=== PATIENT | female | born 1990 | race Caucasian/White ===

== ENCOUNTER → 2016-11-16 | Outpatient (CLI) | payer OTHER ==
[2016-11-16 11:00] LABS: BASOPHILS # (AUTO) 0.03 10*3/UL; BASOPHILS % (AUTO) 0.3 % (0-1); EOSINOPHILS # (AUTO) 0.19 10*3/UL; EOSINOPHILS % (AUTO) 2.1 % (0-8); HEMATOCRIT 39.6 % (37.0-47.0); HEMOGLOBIN 12.8 g/dL (12.0-16.0); LYMPHOCYTES # (AUTO) 2.36 10*3/uL; MEAN CORPUSCULAR HEMOGLOBIN 27.4 PG (27-31); MEAN CORPUSCULAR HGB CONC 32.3 g/dL (33-37); MEAN CORPUSCULAR VOLUME 84.6 FL (81-99); MEAN PLATELET VOLUME 11.6 FL (7.4-12.2); MONOCYTES # (AUTO) 0.59 10*3/UL (0.3-0.8); MONOCYTES % (AUTO) 6.4 % (5-15); NEUTROPHILS # (AUTO) 5.98 10*3/UL; NEUTROPHILS % (AUTO) 65.2 % (50-80); RED BLOOD COUNT 4.68 10^6/uL (4.20-5.40)
[2016-11-16 11:25] LABS: BLOOD UREA NITROGEN 14 mg/dL (7-22); CALCIUM 9.1 mg/dL (8.7-10.7); CHOL/HDL RATIO 3.07 RATIO (0-4.0); EST GLOMERULAR FILTRATION > 60 (>60 ml/min/1.73m(2)); HDL CHOLESTEROL 55 mg/dL (40-150); SERUM CHOLESTEROL 169 mg/dL (120-200)
[2016-11-16 11:46] LABS: PLATELET MORPHOLOGY COMMENT NORMAL MORPHOLOGY (NORM); RBC MORPHOLOGY COMMENT NORMAL MORPHOLOGY (NORM); WBC MORPHOLOGY COMMENT NORMAL MORPHOLOGY (NORM)
== END ==
LOC: MOB LAB 09:51
PROVIDERS: ATTEND Obstetrics & Gynecology
DX: R53.83 Other fatigue (principal); E28.2 Polycystic ovarian syndrome; E66.01 Morbid (severe) obesity due to excess calories; L68.0 Hirsutism
CPT/HCPCS: 36415; 80053; 80061; 82306; 82627; 84403; 84443; 85025

== ENCOUNTER → 2016-11-16 | Outpatient (CLI) | payer OTHER ==
--- NOTE | 2016-11-16 09:03 | DI ---
US PELVIC-TRANSVAGINAL, US PELVIC COMPLETE (NON OB),11/16/2016 8:03 AM: Clinical History: Morbid obesity Previous Exam: None at this facility. Findings: Multiple transabdominal and endovaginal grayscale and color Doppler sonographic images are obtained t hrough the pelvis, and demonstrate a normal-appearing uterus measuring centimeters with an endometria l stripe measuring 7 mm. The right ovary measured 2.9 x 2.4 x 2.9 cm and the left ovary measured 2.3 x 2.3 x 2.4 cm. Both cont ain a few maturing follicles. Doppler flow is preserved within the ovaries. Impression: Normal pelvic ultrasound.
== END ==
LOC: US 07:57
PROVIDERS: ATTEND Obstetrics & Gynecology
DX: E28.2 Polycystic ovarian syndrome (principal); L68.0 Hirsutism; E66.01 Morbid (severe) obesity due to excess calories
CPT/HCPCS: 76830; 76856